=== PATIENT | female | born 2000 | race African-American/Black ===

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

== ENCOUNTER → 2019-02-27 | Outpatient (REF) | payer MEDICAID ==
[~2019-02-27] MED LIST: PRENTAB9 PO
[2019-02-27 18:15] LABS: HEMATOCRIT 38.8 % (36.0-47.0); HEMOGLOBIN 13.5 g/dl (12.0-15.5); MEAN CORPUSCULAR HEMOGLOBIN 31.9 pg (27.0-33.0); MEAN CORPUSCULAR HGB CONC 34.8 g/dl (32.0-36.5); MEAN CORPUSCULAR VOLUME 91.7 fl (80.0-96.0); PLATELET COUNT, AUTOMATED 282 10^3/uL (150-450); RED BLOOD COUNT 4.23 10^6/uL (4.00-5.40); WHITE BLOOD COUNT 8.2 10^3/uL (4.0-10.0)
[2019-02-27 22:43] LABS: HCG, SERUM QUANTITATIVE 8294 MIU/ML
[2019-02-28 10:15] LABS: RUBELLA IgG QUALITATIVE IMMUNE (IMMUNE)
[2019-02-28 10:44] LABS: HEPATITIS C VIRUS ABY INDEX 0.1 INDEX (<0.8)
[2019-02-28 10:53] LABS: HIV 1&2 SCREEN CENTAUR NEGATIVE (NEGATIVE)
[2019-03-05 00:06] LABS: TOXOPLASMA IgG ABY <3.0 IU/mL (0.0-7.1)
== END ==
LOC: M LAB REF 16:44
PROVIDERS: ATTEND Nurse Practitioner Women's Health
DX: Z32.01 Encounter for pregnancy test, result positive (principal); Z3A.00 Weeks of gestation of pregnancy not specified

== ENCOUNTER 2019-03-04 14:25 | Emergency (ER) | payer MEDICAID ==
[~2019-03-04] VITALS: Ht 165.1 cm; Wt 65.6 kg
[2019-03-04] MEDS ORDERED: PRENTAB9 PO (14:51)
[2019-03-04 15:59] LABS: BASO # 0.1 10^3/uL (0.0-0.2); BASO % 0.7 % (0.0-1.0); EOS # 0.1 10^3/uL (0.0-0.5); EOS % 0.8 % (0.0-3.0); HEMATOCRIT 37.8 % (36.0-47.0); HEMOGLOBIN 13.2 g/dl (12.0-15.5); LYMPH # 2.1 10^3/uL (1.5-5.0); LYMPH % 24.3 % (24.0-44.0); MEAN CORPUSCULAR HEMOGLOBIN 31.2 pg (27.0-33.0); MEAN CORPUSCULAR HGB CONC 34.9 g/dl (32.0-36.5); MEAN CORPUSCULAR VOLUME 89.4 fl (80.0-96.0); MONO # 0.5 10^3/uL (0.0-0.8); MONO % 6.1 % (0.0-5.0); NEUTROPHILS # 5.9 10^3/uL (1.5-8.5); NEUTROPHILS % 67.8 % (36.0-66.0); PLATELET COUNT, AUTOMATED 283 10^3/uL (150-450); RED BLOOD COUNT 4.23 10^6/uL (4.00-5.40); WHITE BLOOD COUNT 8.7 10^3/uL (4.0-10.0)
[2019-03-04 17:35] VITALS: BP 126/71
[2019-03-04 17:53] LABS: CHLAMYDIA DNA AMPLIFICATION NEGATIVE (NEGATIVE); GC DNA AMPLIFICATION NEGATIVE (NEGATIVE)
--- NOTE | 2019-03-05 07:26 | REP ---
FIRST TRIMESTER ULTRASOUND: Real-time sonographic evaluation of the gravid uterus is performed and demonstrates a single living intrauterine gestation. The estimated gestational age is 6 weeks 5 days. EDC 10/23/2019, based on a crown rump length of 8 mm. heart rate 153 beats per minute. There is anterior subchorionic hemorrhage which measures 2.3 x 1.1 x 1.2 cm. Complex corpus luteum right ovary measures 2.1 x 2.2 x 1.9 cm. There is no torsion of either ovary with duplex Doppler evaluation. Electronically Signed by Sha Colon MD 03/05/2019 03:34 P
== END 2019-03-04 17:36 | disposition home or self-care (01) ==
LOC: M ED 14:25
DX: O26.899 Other specified pregnancy related conditions, unspecified trimester (principal); O20.8 Other hemorrhage in early pregnancy; Z88.0 Allergy status to penicillin; O99.331 Smoking (tobacco) complicating pregnancy, first trimester; Z3A.08 8 weeks gestation of pregnancy; F17.218 Nicotine dependence, cigarettes, with other nicotine-induced disorders

== ENCOUNTER 2019-04-15 17:35 | Emergency (ER) | payer MEDICAID ==
[~2019-04-15] VITALS: Ht 165.1 cm; Wt 61.8 kg
[2019-04-15 18:30] LABS: BASO # 0.1 10^3/uL (0.0-0.2); BASO % 0.7 % (0.0-1.0); EOS # 0.1 10^3/uL (0.0-0.5); EOS % 1.9 % (0.0-3.0); HEMATOCRIT 40.4 % (36.0-47.0); HEMOGLOBIN 13.7 g/dl (12.0-15.5); LYMPH # 2.2 10^3/uL (1.5-5.0); LYMPH % 33.2 % (24.0-44.0); MEAN CORPUSCULAR HEMOGLOBIN 31.5 pg (27.0-33.0); MEAN CORPUSCULAR HGB CONC 33.9 g/dl (32.0-36.5); MEAN CORPUSCULAR VOLUME 92.9 fl (80.0-96.0); MONO # 0.5 10^3/uL (0.0-0.8); MONO % 7.6 % (0.0-5.0); NEUTROPHILS # 3.8 10^3/uL (1.5-8.5); NEUTROPHILS % 56.5 % (36.0-66.0); PLATELET COUNT, AUTOMATED 283 10^3/uL (150-450); RED BLOOD COUNT 4.35 10^6/uL (4.00-5.40); WHITE BLOOD COUNT 6.7 10^3/uL (4.0-10.0)
[2019-04-15 18:54] LABS: BLOOD UREA NITROGEN 9 MG/DL (7-18); CALCIUM LEVEL 8.6 MG/DL (8.5-10.1); CARBON DIOXIDE LEVEL 29 MEQ/L (21-32); CHLORIDE LEVEL 107 MEQ/L (98-107); CREATININE FOR GFR 0.77 MG/DL (0.55-1.30); GLUCOSE, FASTING 69 MG/DL (70-100); POTASSIUM SERUM 3.8 MEQ/L (3.5-5.1); SODIUM LEVEL 141 MEQ/L (136-145)
[2019-04-15] MEDS ORDERED: KETOROLAC 30 MG/ML VIAL (J1885) IV ONE (19:00)
[2019-04-15] MEDS ORDERED: IBUP80TA PO (20:09)
[2019-04-15 20:37] VITALS: BP 123/74
== END 2019-04-15 20:38 | disposition home or self-care (01) ==
LOC: M ED 17:35
DX: N92.0 Excessive and frequent menstruation with regular cycle (principal); Z88.0 Allergy status to penicillin; F17.210 Nicotine dependence, cigarettes, uncomplicated
CPT/HCPCS: 80048; 81001; 84702; 85025; 86901; 96374; 99284; J1885

== ENCOUNTER → 2019-09-27 | Outpatient (REF) | payer MEDICAID ==
[~2019-09-27] MED LIST changes: +IBUP80TA PO
[2019-09-27 17:48] LABS: HEMATOCRIT 38.7 % (36.0-47.0); HEMOGLOBIN 13.7 g/dl (12.0-15.5); MEAN CORPUSCULAR HEMOGLOBIN 31.5 pg (27.0-33.0); MEAN CORPUSCULAR HGB CONC 35.4 g/dl (32.0-36.5); PLATELET COUNT, AUTOMATED 337 10^3/uL (150-450); RED BLOOD COUNT 4.35 10^6/uL (4.00-5.40); WHITE BLOOD COUNT 11.1 10^3/uL (4.0-10.0)
[2019-09-27 19:43] LABS: HCG, SERUM QUANTITATIVE 7852 MIU/ML
[2019-09-28 11:08] LABS: HEPATITIS B SURFACE ANTIGEN NEGATIVE (NEGATIVE)
[2019-09-28 11:35] LABS: HEPATITIS C VIRUS ABY INDEX 0.1 INDEX (<0.8)
[2019-09-28 12:12] LABS: HIV 1&2 SCREEN CENTAUR NEGATIVE (NEGATIVE)
== END ==
LOC: M LAB REF 16:36
PROVIDERS: ATTEND Obstetrics & Gynecology
DX: O36.80X0 Pregnancy with inconclusive fetal viability, not applicable or unspecified (principal)

== ENCOUNTER → 2019-10-03 | Outpatient (CLI) | payer MEDICAID ==
--- NOTE | 2019-10-03 16:27 | REP ---
FIRST TRIMESTER ULTRASOUND: Real-time sonographic evaluation of the gravid uterus performed utilizing transabdominal and endovaginal technique. There is a single living intrauterine gestation. The estimated gestational age is 6 weeks 1 day based on a crown-rump length of 4 mm, EDC 05/27/2020. The cervix is closed and measures 3 cm in length. heart rate 118 beats per minute. There is no subchorionic hemorrhage. Hyperechoic heterogeneous structure in the right ovary probably represents a complex cyst measuring 1.4 x 1.9 x 1.4 cm. This may represent a hemorrhagic corpus luteum. There is blood flow in the right ovary with duplex Doppler evaluation, with no torsion.
== END ==
LOC: M WHC 15:24
PROVIDERS: ATTEND Obstetrics & Gynecology
DX: Z36.89 Encounter for other specified antenatal screening (principal); Z3A.01 Less than 8 weeks gestation of pregnancy

== ENCOUNTER 2019-10-15 15:06 | Emergency (ER) | payer MEDICAID ==
[~2019-10-15] VITALS: Ht 165.1 cm; Wt 72.2 kg
[2019-10-15 15:07] VITALS: BP 119/74
[2019-10-15] MEDS: ONDANSETRON 4 MG ORAL DISINTEGRATING TAB PO ONE (16:04)
[2019-10-15 16:16] LABS: BASO # 0.1 10^3/uL (0.0-0.2); BASO % 0.4 % (0.0-1.0); EOS # 0.1 10^3/uL (0.0-0.5); EOS % 0.5 % (0.0-3.0); HEMATOCRIT 39.7 % (36.0-47.0); HEMOGLOBIN 13.6 g/dl (12.0-15.5); LYMPH # 2.1 10^3/uL (1.5-5.0); LYMPH % 17.8 % (24.0-44.0); MEAN CORPUSCULAR HEMOGLOBIN 30.8 pg (27.0-33.0); MEAN CORPUSCULAR HGB CONC 34.3 g/dl (32.0-36.5); MEAN CORPUSCULAR VOLUME 89.8 fl (80.0-96.0); MONO # 0.7 10^3/uL (0.0-0.8); MONO % 5.6 % (0.0-5.0); NEUTROPHILS # 8.9 10^3/uL (1.5-8.5); NEUTROPHILS % 75.1 % (36.0-66.0); PLATELET COUNT, AUTOMATED 329 10^3/uL (150-450); RED BLOOD COUNT 4.42 10^6/uL (4.00-5.40); WHITE BLOOD COUNT 11.9 10^3/uL (4.0-10.0)
[2019-10-15 17:19] LABS: ALBUMIN 3.9 GM/DL (3.2-5.2); ALT/SGPT 25 U/L (12-78); BILIRUBIN,DIRECT 0.1 MG/DL (0.0-0.2); BILIRUBIN,TOTAL 0.5 MG/DL (0.2-1.0); BLOOD UREA NITROGEN 6 MG/DL (7-18); CARBON DIOXIDE LEVEL 26 MEQ/L (21-32); CHLORIDE LEVEL 106 MEQ/L (98-107); CREATININE FOR GFR 0.62 MG/DL (0.55-1.30); GLUCOSE, FASTING 79 MG/DL (70-100); HCG, SERUM QUANTITATIVE 120383 MIU/ML; LIPASE 53 U/L (73-393); POTASSIUM SERUM 4.1 MEQ/L (3.5-5.1); SODIUM LEVEL 138 MEQ/L (136-145); TOTAL PROTEIN 7.4 GM/DL (6.4-8.2)
[2019-10-15] MEDS ORDERED: REGL10TA6 PO (17:39)
== END 2019-10-15 17:48 | disposition home or self-care (01) ==
LOC: M ED 15:06
DX: O21.0 Mild hyperemesis gravidarum (principal); Z3A.01 Less than 8 weeks gestation of pregnancy
CPT/HCPCS: 80048; 80076; 81001; 83690; 84702; 85025; 86850; 86900; 86901; 87086; 99282; Q0162

== ENCOUNTER 2019-10-26 14:12 | Emergency (ER) | payer MEDICAID ==
[~2019-10-26] VITALS: Ht 165.1 cm; Wt 71.0 kg
[~2019-10-26 14:12] MED LIST changes: +REGL10TA6 PO
[2019-10-26] MEDS ORDERED: NS 1,000 ML IV ONE (15:45)
[2019-10-26] MEDS ORDERED: METOCLOPRAMIDE INJ 10MG/2ML VIAL (J2765 PER 1) IV ONE (15:45)
[2019-10-26] MEDS ORDERED: METOCLOPRAMIDE 10 MG TAB PO ONE (16:45)
[2019-10-26] MEDS ORDERED: PROM1SUP2 PR ×2 (17:57→18:26)
[2019-10-26] MEDS ORDERED: DICL10TA PO (17:57)
[2019-10-26 18:30] VITALS: BP 114/66
== END 2019-10-26 18:31 | disposition home or self-care (01) ==
LOC: M ED 14:12
DX: O21.9 Vomiting of pregnancy, unspecified (principal); Z88.0 Allergy status to penicillin; Z88.1 Allergy status to other antibiotic agents; Z3A.00 Weeks of gestation of pregnancy not specified

== ENCOUNTER → 2020-01-09 | Outpatient (CLI) | payer MEDICAID ==
[~2020-01-09] MED LIST changes: +CETI10CA2 PO; +DICL10TA PO; +FLON1SPR NARES; +MAPA500T2 PO; +PROM1SUP2 PR
--- NOTE | 2020-02-05 14:15 | REP ---
COMPLETE OBSTETRICAL ULTRASOUND CLINICAL: Anatomical evaluation. COMPARISON: 10/03/2019. TECHNIQUE: Transabdominal obstetrical ultrasound with color Doppler evaluation. FINDINGS: Ultrasound examination demonstrates intrauterine in cephalic presentation. motion was identified by the technologist. Placenta noted anteriorly and grade 1 without evidence for placenta previa or abruption. Amniotic fluid volume is normal. Cervix measures 3.4 cm in length and appears closed. heart rate 144 beats per minute. BIOMETRICAL MEASUREMENTS: BPD 50 mm 21 weeks 2 days HC 178 mm 20 weeks 2 days AC 145 mm 19 weeks 6 days FL 34 mm 20 weeks 5 days HL 32 mm 20 weeks 5 days Estimated gestational age by current measurements 20 weeks 4 days with estimated date of delivery 05/24/2020. Estimated weight 342 grams (52nd percentile). Anatomic assessment demonstrates normal cisterna magna, cavum, thalamus, spine, stomach, kidneys/bladder, four chamber heart/outflow tract, three-vessel cord/cord insertion, facial features and extremities. IMPRESSION: Single live intrauterine in cephalic presentation demonstrates appropriate estimated weight and growth. Anatomic assessment is complete and normal. No gross abnormalities are identified. MTDD
== END ==
LOC: M WHC 08:14
PROVIDERS: ATTEND Obstetrics & Gynecology
DX: Z36.3 Encounter for antenatal screening for malformations (principal)

== ENCOUNTER 2020-01-14 09:45 | Emergency (ER) | payer MEDICAID ==
[~2020-01-14] VITALS: Ht 165.1 cm; Wt 76.9 kg
[~2020-01-14 09:45] MED LIST changes: -CETI10CA2 PO; -FLON1SPR NARES; -MAPA500T2 PO
[2020-01-14] MEDS ORDERED: FLON1SPR NARES (11:11)
[2020-01-14] MEDS ORDERED: CETI10CA2 PO (11:11)
[2020-01-14 11:18] VITALS: BP 119/68
== END 2020-01-14 11:24 | disposition home or self-care (01) ==
LOC: M ED 09:45
DX: O99.512 Diseases of the respiratory system complicating pregnancy, second trimester (principal); J30.9 Allergic rhinitis, unspecified; O99.332 Smoking (tobacco) complicating pregnancy, second trimester; F17.200 Nicotine dependence, unspecified, uncomplicated; Z3A.20 20 weeks gestation of pregnancy; Z88.0 Allergy status to penicillin; Z88.1 Allergy status to other antibiotic agents

== ENCOUNTER 2020-01-18 17:26 | Outpatient (CLI) | payer MEDICAID ==
[~2020-01-18] VITALS: Ht 165.1 cm; Wt 76.2 kg
[~2020-01-18 17:26] MED LIST changes: +CETI10CA2 PO; +FLON1SPR NARES
[2020-01-18] MEDS ORDERED: MAPA500T2 PO (17:50)
--- NOTE | 2020-01-18 18:39 | IPNPDOC ---
Text Note Date of Service The patient was seen on 01/18/20. NOTE Subjective: Gary is a 19-year-old female who is a at 21.3 weeks gestation with an ABBEY of 05/27/20. She initiated care in her first first trimester with [facility]. Her has been complicated by tobacco use and marijuana use. She presents to L&D with complaints of left sharp lower abdominal pain and cramping. She reports she is no longer experiencing this pain. She denies vaginal bleeding, current cramping, dysuria, contractions, or leaking of fluid. She reports occasional movement as she has an anterior placenta. 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 FOB is involved. Tobacco and marijuana use, no alcohol abuse. Reginald STD history. history: February 2019 Objective: Vitals: see below. FHR 140's with no contractions noted. A+Ox3; Respiratory: regular rate with no use of accessory muscles; Abdomen: gravid with uterus at umbilicus. Abdomen soft to palpation and no pain with palpation. Extremities: good perfusion with no edema. Assessment: IUP at 21.3 weeks gestation, round ligament pain. Plan: Urine obtained and sent. Reviewed normal changes of and diagnosis of round ligament pain that is normal. Patient to follow-up with her routine OB appointment on Tuesday. Reviewed access to care and danger signs to report. Patient discharged to home. VS,Fishbone, I+O VS, Fishbone, I+O BP: 116/58; Pulse: 87; Temp 96.9; RR 16 DANIELLE MÉNDEZ CNM Jan 18, 2020 18:39
[2020-01-18 20:06] LABS: APPEARANCE, URINE CLOUDY (CLEAR); BACTERIA, URINE AUTO NEGATIVE (NEGATIVE); BILIRUBIN, URINE AUTO NEGATIVE (NEGATIVE); BLOOD, URINE BLOOD NEGATIVE (NEGATIVE); COLOR, URINE YELLOW (YELLOW); GLUCOSE, URINE (UA) AUTO NEGATIVE (NEGATIVE); KETONE, URINE AUTO NEGATIVE (NEGATIVE); LEUKOCYTE ESTERASE, URINE AUTO 1+ (NEGATIVE); MUCUS, URINE SMALL (NEGATIVE); NITRITE, URINE AUTO NEGATIVE (NEGATIVE); PROTEIN, URINE AUTO NEGATIVE (NEGATIVE); RBC, URINE AUTO 0 /HPF (0-3); SPECIFIC GRAVITY URINE AUTO 1.013 (1.002-1.035); SQUAMOUS EPITHELIAL CELL UR AU 3 /HPF (0-6); UROBILINOGEN, URINE AUTO 0.2 mg/dL (0.0-2.0); WBC, URINE AUTO 2 /HPF (0-3)
== END 2020-01-18 18:42 | disposition home or self-care (01) ==
LOC: M LDO 17:26
PROVIDERS: ATTEND Advanced Practice Midwife
DX: O26.892 Other specified pregnancy related conditions, second trimester (principal); O99.332 Smoking (tobacco) complicating pregnancy, second trimester; O99.322 Drug use complicating pregnancy, second trimester; F12.10 Cannabis abuse, uncomplicated; R10.2 Pelvic and perineal pain; Z3A.21 21 weeks gestation of pregnancy

== ENCOUNTER → 2020-03-05 | Outpatient (CLI) | payer MEDICAID ==
[~2020-03-05] MED LIST changes: +MAPA500T2 PO
[2020-03-05 13:07] LABS: HEMATOCRIT 35.2 % (36.0-47.0); HEMOGLOBIN 11.7 g/dl (12.0-15.5); MEAN CORPUSCULAR HEMOGLOBIN 30.5 pg (27.0-33.0); MEAN CORPUSCULAR HGB CONC 33.2 g/dl (32.0-36.5); MEAN CORPUSCULAR VOLUME 91.7 fl (80.0-96.0); PLATELET COUNT, AUTOMATED 266 10^3/uL (150-450); RED BLOOD COUNT 3.84 10^6/uL (4.00-5.40)
== END ==
LOC: M LAB 11:41
PROVIDERS: ATTEND Obstetrics & Gynecology
DX: Z34.82 Encounter for supervision of other normal pregnancy, second trimester (principal)

== ENCOUNTER → 2020-04-24 | Outpatient (REF) | payer MEDICAID | LOC: M LAB REF 12:15 | PROVIDERS: ATTEND Obstetrics & Gynecology | DX: Z34.83 Encounter for supervision of other normal pregnancy, third trimester (principal); Z3A.00 Weeks of gestation of pregnancy not specified ==

== ENCOUNTER → 2020-08-18 | Outpatient (REF) | payer OTHER, MEDICAID ==
[2020-08-18 18:46] LABS: BASO # 0.1 10^3/uL (0.0-0.2); BASO % 0.9 % (0.0-1.0); EOS # 0.1 10^3/uL (0.0-0.5); HEMATOCRIT 38.1 % (36.0-47.0); HEMOGLOBIN 12.7 g/dl (12.0-15.5); LYMPH # 2.2 10^3/uL (1.5-5.0); LYMPH % 39.4 % (24.0-44.0); MEAN CORPUSCULAR HEMOGLOBIN 29.1 pg (27.0-33.0); MEAN CORPUSCULAR HGB CONC 33.3 g/dl (32.0-36.5); MEAN CORPUSCULAR VOLUME 87.4 fl (80.0-96.0); MONO # 0.5 10^3/uL (0.0-0.8); MONO % 8.1 % (2.0-8.0); NEUTROPHILS # 2.7 10^3/uL (1.5-8.5); NEUTROPHILS % 49.2 % (36.0-66.0); PLATELET COUNT, AUTOMATED 392 10^3/uL (150-450); RED BLOOD COUNT 4.36 10^6/uL (4.00-5.40); WHITE BLOOD COUNT 5.6 10^3/uL (4.0-10.0)
[2020-08-18 19:15] LABS: ALBUMIN 3.6 GM/DL (3.2-5.2); ALT/SGPT 21 U/L (12-78); BILIRUBIN,TOTAL 0.3 MG/DL (0.2-1.0); BLOOD UREA NITROGEN 7 MG/DL (7-18); CALCIUM LEVEL 8.9 MG/DL (8.5-10.1); CARBON DIOXIDE LEVEL 25 MEQ/L (21-32); CHLORIDE LEVEL 109 MEQ/L (98-107); CHOLESTEROL LEVEL 155 MG/DL (<200); CREATININE FOR GFR 0.85 MG/DL (0.55-1.30); GLOMERULAR FILTRATION RATE > 60.0 (>60); GLUCOSE, FASTING 91 MG/DL (70-100); HDL CHOLESTEROL 52 MG/DL (>40); LDL CHOLESTEROL 80 MG/DL (<100); NON-HDL-C 103 MG/DL; POTASSIUM SERUM 4.3 MEQ/L (3.5-5.1); SODIUM LEVEL 140 MEQ/L (136-145); THYROID STIMULATING HORMONE 0.826 uIU/ML (0.358-3.740); TOTAL 25(OH) VITAMIN D 11.2 NG/ML (30.0-100.0); TOTAL PROTEIN 7.1 GM/DL (6.4-8.2); TRIGLYCERIDES LEVEL 117 MG/DL (<150)
== END ==
LOC: M LAB REF 16:27
PROVIDERS: ATTEND Pediatrics
DX: Z76.89 Persons encountering health services in other specified circumstances (principal)

== ENCOUNTER 2021-09-02 08:35 | Emergency (ER) | payer OTHER, MEDICAID ==
[2021-09-02 09:00] VITALS: BP 125/65
[2021-09-02 11:11] LABS: BASO % 0.2 % (0.0-1.0); EOS % 0.1 % (0.0-3.0); HEMATOCRIT 39.3 % (36.0-47.0); HEMOGLOBIN 13.8 g/dl (12.0-15.5); LYMPH # 0.5 10^3/uL (1.5-5.0); LYMPH % 2.5 % (24.0-44.0); MEAN CORPUSCULAR HEMOGLOBIN 30.5 pg (27.0-33.0); MEAN CORPUSCULAR HGB CONC 35.1 g/dl (32.0-36.5); MEAN CORPUSCULAR VOLUME 86.8 fl (80.0-96.0); MONO # 1.5 10^3/uL (0.0-0.8); MONO % 7.1 % (2.0-8.0); NEUTROPHILS # 18.3 10^3/uL (1.5-8.5); NEUTROPHILS % 89.5 % (36.0-66.0); PLATELET COUNT, AUTOMATED 277 10^3/uL (150-450); RED BLOOD COUNT 4.53 10^6/uL (4.00-5.40); WHITE BLOOD COUNT 20.4 10^3/uL (4.0-10.0)
[2021-09-02 11:44] LABS: CK-MB VALUE MASS < 1.0 NG/ML (<3.6); CPK CREATINE PHOSPHOKINASE 102 U/L (26-192); MB/CK RELATIVE INDEX 0.98 (< OR =4)
[2021-09-02 11:55] LABS: HCG, SERUM QUALITATIVE NEGATIVE (NEGATIVE)
[2021-09-02 11:59] LABS: ALBUMIN 3.9 GM/DL (3.2-5.2); ALT/SGPT 22 U/L (12-78); AMYLASE 18 U/L (25-115); BILIRUBIN,DIRECT 0.3 MG/DL (0.0-0.2); BILIRUBIN,TOTAL 1.1 MG/DL (0.2-1.0); BLOOD UREA NITROGEN 9 MG/DL (7-18); CALCIUM LEVEL 9.3 MG/DL (8.5-10.1); CARBON DIOXIDE LEVEL 25 MEQ/L (21-32); CHLORIDE LEVEL 105 MEQ/L (98-107); CREATININE FOR GFR 0.63 MG/DL (0.55-1.30); ETHYL ALCOHOL (ETHANOL) < 0.003 % (0.000-0.010); GLOMERULAR FILTRATION RATE > 60.0 (>60); GLUCOSE, FASTING 102 MG/DL (70-100); LIPASE 23 U/L (73-393); POTASSIUM SERUM 3.5 MEQ/L (3.5-5.1); SODIUM LEVEL 138 MEQ/L (136-145); TOTAL PROTEIN 7.5 GM/DL (6.4-8.2)
== END 2021-09-02 12:10 | disposition left against medical advice (07) ==
LOC: M ED 08:35 → EDBD 08:35 → M ED 12:10
DX: Z53.21 Procedure and treatment not carried out due to patient leaving prior to being seen by health care provider (principal)

== ENCOUNTER 2021-10-03 04:34 | Emergency (ER) | payer OTHER, MEDICAID ==
[~2021-10-03] VITALS: Ht 165.1 cm; Wt 62.7 kg
[2021-10-03 04:35] VITALS: BP 130/84
[2021-10-03] MEDS ORDERED: CLIN150C17 PO (04:42)
[2021-10-03 08:56] LABS: GC DNA AMPLIFICATION POSITIVE (NEGATIVE)
== END 2021-10-03 07:14 | disposition left against medical advice (07) ==
LOC: M ED 04:34
DX: Z53.21 Procedure and treatment not carried out due to patient leaving prior to being seen by health care provider (principal)

== ENCOUNTER 2021-10-05 08:37 | Emergency (ER) | payer MEDICAID, OTHER ==
[~2021-10-05] VITALS: Ht 165.1 cm; Wt 60.4 kg
[~2021-10-05 08:37] MED LIST changes: +CLIN150C17 PO
[2021-10-05] MEDS ORDERED: cefTRIAXone 500MG VIAL (J0696 PER 250MG) IM ONE (10:30)
[2021-10-05] MEDS ORDERED: LIDOCAINE 1% SDV 5ML VIAL DILUENT ONE (10:30)
[2021-10-05] MEDS ORDERED: metroNIDAZOLE (FLAGYL) 500MG TABLET PO ONE (10:30)
[2021-10-05] MEDS ORDERED: METR-265 PO (10:43)
[2021-10-05 11:02] LABS: URINE PREG TEST NEGATIVE (NEGATIVE)
[2021-10-05 11:17] VITALS: BP 124/89
== END 2021-10-05 11:18 | disposition home or self-care (01) ==
LOC: M ED 08:37
DX: A54.9 Gonococcal infection, unspecified (principal); A59.9 Trichomoniasis, unspecified; Z88.0 Allergy status to penicillin; Z88.1 Allergy status to other antibiotic agents
CPT/HCPCS: 84703; 96372; 99283; J0696

== ENCOUNTER → 2022-08-19 | Outpatient (REF) | payer OTHER ==
[~2022-08-19] MED LIST changes: +METR-265 PO
[2022-08-19 13:35] LABS: APPEARANCE, URINE CLEAR (CLEAR); BACTERIA, URINE AUTO NEGATIVE (NEGATIVE); BILIRUBIN, URINE AUTO NEGATIVE (NEGATIVE); BLOOD, URINE BLOOD NEGATIVE (NEGATIVE); COLOR, URINE YELLOW (YELLOW); GLUCOSE, URINE (UA) AUTO NEGATIVE (NEGATIVE); KETONE, URINE AUTO NEGATIVE (NEGATIVE); LEUKOCYTE ESTERASE, URINE AUTO NEGATIVE (NEGATIVE); MUCUS, URINE SMALL (NEGATIVE); NITRITE, URINE AUTO NEGATIVE (NEGATIVE); PROTEIN, URINE AUTO NEGATIVE (NEGATIVE); RBC, URINE AUTO 0 /HPF (0-3); SQUAMOUS EPITHELIAL CELL UR AU 2 /HPF (0-6); UROBILINOGEN, URINE AUTO 0.2 mg/dL (0.0-2.0); WBC, URINE AUTO 0 /HPF (0-3)
== END ==
LOC: M LAB REF 12:12
PROVIDERS: ATTEND Physician Assistant
DX: N39.0 Urinary tract infection, site not specified (principal)

== ENCOUNTER → 2023-01-17 | Outpatient (REF) | payer OTHER ==
[~2023-01-17] MED LIST changes: +ACET650S3 PR; +CLEO300C2 PO
[2023-01-17 17:22] LABS: URINE PREG TEST NEGATIVE (NEGATIVE)
== END ==
LOC: M LAB REF 16:22
PROVIDERS: ATTEND Physician Assistant Medical
DX: Z32.00 Encounter for pregnancy test, result unknown (principal)

== ENCOUNTER 2023-01-18 05:49 | Emergency (ER) | payer OTHER ==
[~2023-01-18] VITALS: Ht 165.1 cm; Wt 68.5 kg
[~2023-01-18 05:49] MED LIST changes: -ACET650S3 PR; -CLEO300C2 PO
[2023-01-18] MEDS ORDERED: ACET650S3 PR (05:56)
[2023-01-18] MEDS ORDERED: KETOROLAC 60MG 2ML VIAL IM ONE (07:30)
[2023-01-18] MEDS ORDERED: CLINDAMYCIN 150MG CAPSULE PO ONE (07:35)
[2023-01-18] MEDS ORDERED: CLEO300C2 PO (08:05)
[2023-01-18 08:24] VITALS: BP 116/68; TEMP 98.5; O2SAT 96
== END 2023-01-18 08:26 | disposition home or self-care (01) ==
LOC: M ED 05:49
DX: K04.7 Periapical abscess without sinus (principal); K08.89 Other specified disorders of teeth and supporting structures; F17.200 Nicotine dependence, unspecified, uncomplicated; Z88.0 Allergy status to penicillin; Z88.1 Allergy status to other antibiotic agents; Z79.1 Long term (current) use of non-steroidal anti-inflammatories (NSAID); Z79.2 Long term (current) use of antibiotics
CPT/HCPCS: 96372; 99283; J1885

== ENCOUNTER → 2023-02-09 | Outpatient (REF) | payer OTHER ==
[~2023-02-09] MED LIST changes: +ACET650S3 PR; +CLEO300C2 PO
== END ==
LOC: M LAB REF 12:48
PROVIDERS: ATTEND Pediatrics
DX: E55.9 Vitamin D deficiency, unspecified (principal)

== ENCOUNTER → 2023-12-21 | Outpatient (CLI) | payer OTHER | LOC: M RAD 17:17 | PROVIDERS: ATTEND Physician Assistant | DX: M25.562 Pain in left knee (principal) ==

== ENCOUNTER → 2024-05-08 | Outpatient (CLI) | payer MEDICAID, MEDICARE, OTHER | LOC: M RAD 09:36 | PROVIDERS: ATTEND Pediatrics | DX: S09.93XA Unspecified injury of face, initial encounter (principal); J01.00 Acute maxillary sinusitis, unspecified; Y93.9 Activity, unspecified; Y92.9 Unspecified place or not applicable ==

== ENCOUNTER 2024-06-17 18:36 | Emergency (ER) | payer OTHER, MEDICAID ==
[~2024-06-17] VITALS: Ht 165.1 cm; Wt 64.1 kg
[2024-06-17 18:43] VITALS: BP 118/73; TEMP 97.7; O2SAT 100
[2024-06-17] MEDS ORDERED: THERTAB52 PO (18:50)
[2024-06-17 19:22] LABS: BASO # 0.1 10^3/uL (0.0-0.2); BASO % 0.6 % (0.0-1.0); EOS # 0.3 10^3/uL (0.0-0.5); HEMATOCRIT 37.2 % (36.0-47.0); HEMOGLOBIN 12.8 g/dl (12.0-15.5); LYMPH # 2.2 10^3/uL (1.5-5.0); LYMPH % 23.9 % (24.0-44.0); MEAN CORPUSCULAR HGB CONC 34.4 g/dl (32.0-36.5); MONO # 0.5 10^3/uL (0.0-0.8); MONO % 5.8 % (2.0-8.0); NEUTROPHILS # 6.2 10^3/uL (1.5-8.5); NEUTROPHILS % 66.4 % (36.0-66.0); PLATELET COUNT, AUTOMATED 331 10^3/uL (150-450); WHITE BLOOD COUNT 9.3 10^3/uL (4.0-10.0)
[2024-06-17 19:47] LABS: BLOOD UREA NITROGEN 12 MG/DL (9-23); CALCIUM LEVEL 9.4 MG/DL (8.5-10.1); CARBON DIOXIDE LEVEL 28 MMOL/L (20-31); CHLORIDE LEVEL 108 MMOL/L (98-107); CREATININE FOR GFR 0.67 MG/DL (0.55-1.30); GLOMERULAR FILTRATION RATE > 60.0 (>60); GLUCOSE, FASTING 78 MG/DL (60-100); POTASSIUM SERUM 4.4 MMOL/L (3.5-5.1); SODIUM LEVEL 143 MMOL/L (136-145)
[2024-06-17] MEDS: ACETAMINOPHEN 500 MG TAB PO ONE (21:27)
[2024-06-17] MEDS: MUPIROCIN 2% OINT 22 GM TUBE TOP ONE (22:00)
[2024-06-17] MEDS: BOOSTRIX VACCINE (TETANUS/DIPHTH/ACEL. PERTUSSIS) 0.5ML SYR IM ONE (22:01)
[2024-06-17] MEDS: IBUPROFEN 800 MG TAB PO ONE (22:10)
[2024-06-17] MEDS: DOXYCYCLINE HYCLATE 100MG TABLET PO ONE (22:10)
[2024-06-17] MEDS: metroNIDAZOLE (FLAGYL) 500MG TABLET PO ONE (22:10)
[2024-06-17] MEDS ORDERED: METR-265 PO (22:12)
[2024-06-17] MEDS ORDERED: DOXY100C3 PO (22:12)
[2024-06-17] MEDS ORDERED: IBUP80TA PO (22:12)
[2024-06-17] MEDS ORDERED: MUPI30CR TOP (22:18)
== END 2024-06-17 22:23 | disposition home or self-care (01) ==
LOC: M ED 18:36 → EDBD 18:36 → M ED 22:23
DX: S60.511A Abrasion of right hand, initial encounter (principal); S60.512A Abrasion of left hand, initial encounter; S80.01XA Contusion of right knee, initial encounter; S80.02XA Contusion of left knee, initial encounter; S00.03XA Contusion of scalp, initial encounter; S13.4XXA Sprain of ligaments of cervical spine, initial encounter; Y04.1XXA Assault by human bite, initial encounter; J45.909 Unspecified asthma, uncomplicated; F17.200 Nicotine dependence, unspecified, uncomplicated; Z88.0 Allergy status to penicillin; Z88.1 Allergy status to other antibiotic agents; Z79.1 Long term (current) use of non-steroidal anti-inflammatories (NSAID); Z79.899 Other long term (current) drug therapy; Z23 Encounter for immunization; Y92.89 Other specified places as the place of occurrence of the external cause; Y93.89 Activity, other specified; Y99.0 Civilian activity done for income or pay